=== PATIENT | female | born 1970 | race Caucasian/White ===

== ENCOUNTER 2016-10-03 09:23 | Emergency (ER) | payer OTHER ==
[2016-10-03 10:35] LABS: BASO % 0.1 % (0.1-1.2); BLOOD UREA NITROGEN 6 mg/dL (7-18); CARBON DIOXIDE 27 mmol/L (21-32); CREATININE 0.5 mg/dL (0.6-1.3); EOS % 0.4 % (0.7-5.8); GLUCOSE,RANDOM 93 mg/dL (70-99); GRAN # 5.6 10_X3_uL (1.6-6.1); HEMATOCRIT 35.7 % (34-45); LYMPH # 1.3 10_X3_uL (1.2-3.7); LYMPH % 18.3 % (19.3-51.7); MEAN CORPUSCULAR HEMOGLOBIN 25.1 pg (27.0-33.0); MEAN CORPUSCULAR HGB CONC 30.8 g/dL (32.0-36.0); MEAN CORPUSCULAR VOLUME 81.3 fL (79-95); MEAN PLATELET VOLUME 9.7 fl (7.5-11.5); MONO # 0.3 10_X3_uL (0.2-0.9); MONO % 4.2 % (4.7-12.5); PLATELET COUNT 276 x10_3/uL (182-369); POTASSIUM 3.6 mmol/L (3.5-5.1); RED BLOOD COUNT 4.39 x10_6/uL (3.9-5.2); SODIUM 137 mmol/L (136-145); WHITE BLOOD COUNT 7.3 x10_3/uL (4.0-10.0)
== END 2016-10-03 11:15 | disposition home or self-care (01) ==
LOC: ER 09:23
PROVIDERS: General Practice
DX: J06.9 Acute upper respiratory infection, unspecified (principal); J32.9 Chronic sinusitis, unspecified; J43.9 Emphysema, unspecified; I16.0 Hypertensive urgency; I10 Essential (primary) hypertension; R05 Cough; F17.210 Nicotine dependence, cigarettes, uncomplicated; Z79.899 Other long term (current) drug therapy
CPT/HCPCS: 36415; 71250; 80048; 83605; 85025; 87040; 96374; 99070; 99283-25